=== PATIENT | female | born 1940 | race Caucasian/White ===

== ENCOUNTER 2016-12-24 10:04 | Emergency (ER) | payer OTHER ==
[~2016-12-24] VITALS: Ht 167.6 cm; Wt 72.6 kg
[~2016-12-24 10:04] MED LIST: BUSPAR10 MG ORAL; DICLOFENAC SODI50 MG ORAL; EFFEXOR XR150 MG ORAL; FOLIC ACID1 MG ORAL; LOMOTIL TABLET1 EACH ORAL; MOBIC15 MG ORAL; MYRBETRIQ25 MG PO; NYSTATIN CREAM15 GM TOPIC; TYLENOL EXTRA500 MG ORAL; VITAMIN B-12500 MCG ORAL; ZYPREXA5 MG ORAL
[2016-12-24] MEDS ORDERED: RESTORIL15 MG ORAL (10:12)
[2016-12-24 11:14] LABS: APPEARANCE,URINE CLEAR; KETONES,URINE NEGATIVE (NEGATIVE); LEUKOCYTE ESTERASE ,URINE NEGATIVE (NEGATIVE); NITRITE,URINE NEGATIVE (NEGATIVE); PH,URINE 7 (4.5-8.0); PROTEIN,URINE NEGATIVE (NEGATIVE); UROBILINOGEN,URINE NORMAL MG/DL (0.0-1.0)
--- NOTE | 2016-12-24 11:32 | Emergency Room Report ---
History of Present Illness General Chief Complaint: Female Urogenital Problems Source: Patient, Medical Record Present Illness HPI 76 YOF from assisted living facility with lower abd pain and unable to urinate. Frequent history of UTIs. Patient is known schizophrenic, breaks down and cries and tells me "my mother of cancer" every 5 minute. She does deny abd pain, nausea/vomiting, diarrhea, previous surgeries. Has no other complaints. Allergies: Uncoded Allergies: bactrim DS (Allergy, Intermediate, Hives, 03/05/15) Patient History Past Medical History: psych hx Past Surgical History: none Pertinent Family History: none Social History: Denies: alcohol use, drug use, smoking Now: No Immunizations: UTD Reviewed Nursing Documentation: PMH: Agreed, PSxH: Agreed Nursing Documentation-PMH Hx Cardiac Problems: No Hx Hypertension: No Hx Pacemaker: No Hx Asthma: No Hx COPD: No Hx Diabetes: No Hx Cancer: No Hx Gastrointestinal Problems: Yes - urinary incontinance,obesity Hx Dialysis: No History Of Psychiatric Problem: Yes - schizophrenia Hx Neurological Problems: No Hx Cerebrovascular Accident: No Hx Seizures: No Review of Systems All Other Systems: negative except mentioned in HPI Physical Exam Vital Signs Date Time Temp Pulse Resp B/P Pulse Ox O2 Delivery O2 Flow Rate FiO2 12/24/16 09:59 98.4 100 18 147/74 96 Room Air Sp02 EP Interpretation: reviewed, normal General Appearance: normal inspection, well appearing, no apparent distress, alert, GCS 15, non-toxic Head: normocephalic, atraumatic Eyes: bilateral eye EOMI, bilateral eye PERRL ENT: normal ENT inspection, hearing grossly normal, normal voice Neck: normal inspection, full range of motion, supple, no bony tend Respiratory: normal inspection, lungs clear, normal breath sounds, no respiratory distress, no retraction, no wheezing Cardiovascular #1: regular rate, rhythm, no edema Gastrointestinal: normal inspection, normal bowel sounds, non tender, soft, no guarding, no hernia Genitourinary: no CVA tenderness Musculoskeletal: normal inspection, back normal, normal range of motion, Jaguar' s Sign negative Neurologic: normal inspection, alert, oriented x3, responsive, 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, motor strength/tone normal, speech normal Psychiatric: normal inspection, judgement/insight normal, mood/affect normal Skin: normal inspection, normal color, no rash Lymphatic: normal inspection Medical Decision Making Diagnostic Impression: Primary Impression: Urinary retention ER Course Rodas placed with release of urine UA negative for infection Patient DCed with Rodas with leg bag with Urology followup recommended DC back to assisted living D/w PMD Dr Mckenzie that patient returning to assisted living and recommended Urology followup low suspicion for other acute bacterial/surgical process given normal vital signs, afebrile, abd discomfort resolved after rodas placed, abd soft, NT/ND non peritoneal on serial exam Last Vital Signs Date Time Temp Pulse Resp B/P Pulse Ox O2 Delivery O2 Flow Rate FiO2 12/24/16 09:59 98.4 100 18 147/74 96 Room Air Status: improved Disposition: ASSISTED LIVING Referrals: GLORIA GRAVES (PCP) YVROSE NOBLES M.D. Dec 24, 2016 11:32
[2016-12-24 13:11] VITALS: BP 135/62
== END 2016-12-24 13:15 ==
LOC: EDBD 10:04 → EMR 10:20
DX: R33.9 Retention of urine, unspecified (principal); F20.9 Schizophrenia, unspecified; E66.9 Obesity, unspecified; Z68.25 Body mass index [BMI] 25.0-25.9, adult
CPT/HCPCS: 81003

== ENCOUNTER 2016-12-26 20:51 | Emergency (ER) | payer MEDICAID, OTHER ==
[~2016-12-26] VITALS: Ht 162.6 cm; Wt 77.1 kg
[~2016-12-26 20:51] MED LIST changes: +RESTORIL15 MG ORAL
[2016-12-26 22:19] VITALS: BP 140/98
[2016-12-26 22:37] VITALS: BP 140/98
--- NOTE | 2016-12-27 00:53 | Emergency Room Report ---
History of Present Illness General Chief Complaint: General Complaint Source: EMS Present Illness HPI Patient was here several days ago with urinary retention Had Rodas catheter placement Patient was sent back from nursing facility as it was reported that her Rodas catheter had dislodged Patient herself has underlying dementia, history is not obtained from the patient herself No reports of any vomiting or diarrhea no reports of any fevers, Allergies: Uncoded Allergies: bactrim DS (Allergy, Intermediate, Hives, 03/05/15) Patient History Limited by: medical condition Past Medical History: see triage record Pertinent Family History: none Reviewed Nursing Documentation: PMH: Agreed, PSxH: Agreed Nursing Documentation-PMH Hx Cardiac Problems: No Hx Hypertension: No Hx Pacemaker: No Hx Asthma: No Hx COPD: No Hx Diabetes: No Hx Cancer: No Hx Gastrointestinal Problems: Yes - urinary incontinance,obesity Hx Dialysis: No History Of Psychiatric Problem: Yes - DEMENTIA Hx Neurological Problems: No Hx Cerebrovascular Accident: No Hx Seizures: No Review of Systems All Other Systems: limited - Other than the ones mentioned in the history of present illness all others are reviewed however they do stay limited due to the patient's mental status Physical Exam Vital Signs Date Time Temp Pulse Resp B/P Pulse Ox O2 Delivery O2 Flow Rate FiO2 12/26/16 20:42 99.0 86 16 150/80 96 Room Air Sp02 EP Interpretation: reviewed, normal General Appearance: no apparent distress Head: normocephalic, atraumatic Eyes: bilateral eye EOMI, bilateral eye PERRL ENT: normal pharynx Neck: full range of motion, supple Respiratory: lungs clear, normal breath sounds Cardiovascular #1: regular rate, rhythm, no edema Gastrointestinal: non tender, soft Genitourinary: no CVA tenderness Musculoskeletal: normal inspection Neurologic: responsive - Patient is responsive however does show underlying confusion Skin: normal color Medical Decision Making Diagnostic Impression: Primary Impression: rodas catheter placement ER Course Patient's Rodas catheter was replaced Patient does require further outpatient followup and evaluation for the need of this Rodas catheter Otherwise this time patient is afebrile And was transferred back to nursing facility Last Vital Signs Date Time Temp Pulse Resp B/P Pulse Ox O2 Delivery O2 Flow Rate FiO2 12/26/16 22:37 98.9 97 18 140/98 98 Room Air Status: improved Disposition: [facility] Condition: Improved Referrals: [facility],REFERR[facility] (PCP) Patient Instructions: Rodas Catheter Care, Adult, [id number] Additional Instructions: Patient is provided with the discharge instructions notified to follow up with primary doctor in the next 2-3 days otherwise return to the er with any worsening symptoms. Please note that this report is being documented using [employer] technology. This can lead to erroneous entry secondary to incorrect interpretation by the dictating instrument. URSULA BARRETT D.O. Dec 27, 2016 00:53
== END 2016-12-26 22:37 ==
LOC: EDBD 20:51 → EMR 21:06
DX: Z46.6 Encounter for fitting and adjustment of urinary device (principal); R33.9 Retention of urine, unspecified; F03.90 Unspecified dementia, unspecified severity, without behavioral disturbance, psychotic disturbance, mood disturbance, and anxiety; Z88.2 Allergy status to sulfonamides